=== PATIENT | female | born 1960 | race Caucasian/White ===

== ENCOUNTER → 2018-03-16 | Outpatient (CLI) | payer OTHER | LOC: FIMAGING 02-23 15:41 | PROVIDERS: ATTEND Obstetrics & Gynecology | DX: Z12.31 Encounter for screening mammogram for malignant neoplasm of breast (principal) ==

== ENCOUNTER 2018-10-24 17:04 | Observation (INO) | payer OTHER ==
[2018-10-24] MEDS ORDERED: ASPIRIN 81 MG CHEWABLE TAB PO ONE (17:26)
--- NOTE | 2018-10-24 17:36 | EDPHY ---
H & P Stated Complaint: Sent from [facility] for EKG changes and SOB Time Seen by Provider: 10/24/18 17:14 HPI/ROS: CHIEF COMPLAINT: Shortness breath and EKG changes HISTORY OF PRESENT ILLNESS: This is a very pleasant 58-year-old female with a history of essential hypertension as well as asymmetrical septal hypertrophy who was 1st seen at [facility] in August of 2018. On October 02, the patient suffered an acute left CVA in the posterior frontal lobe. At that time, she you developed an abrupt onset of slurred speech left-sided facial numbness and left-sided weakness along with difficulty swallowing. Patient was discharged from [facility] following her CVA on 10/03 2018 with instructions to take aspirin 81 mg daily as well as Plavix 75 mg daily. Patient did have a EKG at that time which demonstrated T-wave inversions isolated V5 and V6. She had a echocardiogram with left ventricular ejection fraction of 55-60%. Patient was then seen at [facility] on 10/11 and noted to be in atrial flutter with a rate of 111. Patient's medications were changed to metoprolol 25 mg p.o. Twice daily and Eliquis 5 mg p.o. Twice daily. She was also started on atorvastatin 20 mg daily. Patient presented today to [facility] for follow-up visit. She reports that she did well initially on the new medication regiment but about a week ago started to develop some progressive shortness of breath. She does report that when she was on Bystolic several years ago she also developed some shortness of breath. Patient had severe shortness of breath over the weekend (3-4 days ago) and she herself began taking metoprolol only once a day. Of concern, today while at Dr. Benjamin's office, the patient is now noted to have an EKG demonstrating ST depression and T-wave inversions inferiorly as well as slight ST elevation V1 V2 and T-wave inversions V5 V6. Patient denies any fevers or chills. She really has no chest pain or shortness of breath. She denies feeling palpitations, or rapid heart rate. REVIEW OF SYSTEMS: A comprehensive 10 system review of systems was reviewed and is otherwise negative aside from elements mentioned in the history of present illness and medical decision making. PAST MEDICAL HISTORY: Hypertension, CVA, atrial flutter SOCIAL HISTORY: Former smoker VITAL SIGNS Reviewed by me. GENERAL: Well-developed, well-nourished, resting comfortably in no respiratory distress. HEENT: Atraumatic. Eyes: No icterus, no injection. Mouth: moist mucous membranes. No erythema or lesions. Neck: supple with no adenopathy. LUNGS: Clear to auscultation bilaterally, no wheezes, rhonchi or rales. CARDIAC: Regular rate and rhythm, no rubs, murmurs or gallops. ABDOMEN: Soft, nontender, nondistended, bowel sounds normal. BACK: No CVA tenderness. EXTREMITIES: No trauma. No edema. Range of motion is normal throughout. NEURO: Alert and oriented, grossly nonfocal. SKIN: Warm and dry, no rash. PSYCHIATRIC: Normal mentation, no agitation. - Personal History Current Tetanus Diphtheria and Acellular Pertussis (TDAP): Yes - Medical/Surgical History Hx Asthma: No Hx Chronic Respiratory Disease: No Hx Diabetes: No Hx Cardiac Disease: Yes Hx Renal Disease: No Hx Cirrhosis: No Hx Alcoholism: No Hx HIV/AIDS: No Hx Splenectomy or Spleen Trauma: No Other PMH: A-Fib. CVA -October 02 2018. - Social History Smoking Status: Never smoked Constitutional: Initial Vital Signs Temperature (C) 36.9 C 10/24/18 17:08 Heart Rate 65 10/24/18 17:08 Respiratory Rate 16 10/24/18 17:08 Blood Pressure 174/108 H 10/24/18 17:08 O2 Sat (%) 96 10/24/18 17:08 O2 Delivery Mode Room Air Allergies/Adverse Reactions: Penicillins Allergy (Intermediate, Verified 10/24/18 19:24) Rash Home Medications: Medication Instructions Recorded Apixaban [Eliquis] 5 mg PO BID 10/24/18 Levothyroxine [Synthroid 75 mcg 75 mcg PO DAILY06 10/24/18 (*)] Liothyronine Sodium [Cytomel 5 mcg 5 mcg PO DAILY 10/24/18 (*)] Metoprolol Tartrate [Lopressor 25 25 mg PO DAILY 10/24/18 mg (*)] Medical Decision Making - Diagnostics EKG Interpretation: 12-LEAD EKG: Please see the full report in [facility]. My interpretation: Sinus rhythm, T-wave inversion and flattening inferior leads slight ST elevation in V1 V2. T-wave inversion V5 V6 Imaging Results: Imaging Impressions Chest X-Ray 10/24/18 17:28 Impression: Cardiomegaly with mild peribronchial thickening suggesting fluid overload, without patricio failure. Imaging: I viewed and interpreted images myself ED Course/Re-evaluation: 58-year-old female with a history of hypertension, asymmetric septal hypertrophy , CVA, episode of atrial flutter now presenting with progressive shortness of breath, worse over the weekend, and EKG changes of T-wave inversions inferiorly and slight ST-elevation anterior. Bedside troponin was 0.00. Laboratory evaluation largely unremarkable. Chest x -ray demonstrates cardiomegaly and probable mild fluid overload. Patient will be admitted to the hospital given the concerning EKG changes in the setting of a history of atrial flutter, hypertrophic outlet obstruction. Course was discussed with Dr. Audi Albarran. Patient was admitted PCU. She is resting comfortably. Differential Diagnosis: Differential diagnosis for the patient's shortness of breath was considered including but not limited to congestive heart failure, fluid overload, pulmonary embolism, congestive heart failure, arrhythmia, cardiac causes, valvular dysfunction. - Data Points Laboratory Results: Laboratory Results 10/24/18 17:30 10/24/18 17:30 10/24/18 10/24/18 10/24/18 17:33 17:30 17:30 WBC RBC Hgb Hct MCV MCH MCHC RDW Plt Count MPV Neut % (Auto) Lymph % (Auto) [place] % (Auto) Eos % (Auto) Baso % (Auto) Nucleat RBC Rel Count Absolute Neuts (auto) Absolute Lymphs (auto) Absolute Monos (auto) Absolute Eos (auto) Absolute Basos (auto) Absolute Nucleated RBC Immature Gran % Immature Gran # Sodium 138 mEq/L mEq/L (135-145) Potassium 4.0 mEq/L mEq/L (3.5-5.2) Chloride 103 mEq/L mEq/L (97-110) Carbon Dioxide 26 mEq/l mEq/l (22-31) Anion Gap 9 mEq/L mEq/L (6-14) BUN 18 mg/dL mg/dL (7-23) Creatinine 1.0 mg/dL mg/dL (0.6-1.0) Estimated GFR 57 Glucose 90 mg/dL mg/dL (70-100) Calcium 9.8 mg/dL mg/dL (8.5-10.4) POC Troponin I 0.02 ng/mL ng/mL (0.00-0.08) Troponin I 0.013 ng/mL ng/mL (0.000-0.034) NT-Pro-B Natriuret Pep 1000 pg/mL H pg/mL (0-125) 10/24/18 17:30 WBC 6.60 10^3/uL 10^3/uL (3.80-9.50) RBC 5.05 10^6/uL 10^6/uL (4.18-5.33) Hgb 15.7 g/dL g/dL (12.6-16.3) Hct 47.1 % H % (38.0-47.0) MCV 93.3 fL fL (81.5-99.8) MCH 31.1 pg pg (27.9-34.1) MCHC 33.3 g/dL g/dL (32.4-36.7) RDW 13.2 % % (11.5-15.2) Plt Count 259 10^3/uL 10^3/uL (150-400) MPV 11.5 fL fL (8.7-11.7) Neut % (Auto) 42.7 % % (39.3-74.2) Lymph % (Auto) 42.6 % % (15.0-45.0) [place] % (Auto) 9.1 % % (4.5-13.0) Eos % (Auto) 4.5 % % (0.6-7.6) Baso % (Auto) 0.9 % % (0.3-1.7) Nucleat RBC Rel Count 0.0 % % (0.0-0.2) Absolute Neuts (auto) 2.82 10^3/uL 10^3/uL (1.70-6.50) Absolute Lymphs (auto) 2.81 10^3/uL 10^3/uL (1.00-3.00) Absolute Monos (auto) 0.60 10^3/uL 10^3/uL (0.30-0.80) Absolute Eos (auto) 0.30 10^3/uL 10^3/uL (0.03-0.40) Absolute Basos (auto) 0.06 10^3/uL 10^3/uL (0.02-0.10) Absolute Nucleated RBC 0.00 10^3/uL 10^3/uL (0-0.01) Immature Gran % 0.2 % % (0.0-1.1) Immature Gran # 0.01 10^3/uL 10^3/uL (0.00-0.10) Sodium Potassium Chloride Carbon Dioxide Anion Gap BUN Creatinine Estimated GFR Glucose Calcium POC Troponin I Troponin I NT-Pro-B Natriuret Pep Medications Given: Apixaban (Eliquis) 5 mg PO BID MARLON Stop: 04/22/19 20:59 Last Admin: 10/24/18 21:56 Dose: 5 mg Discontinued Medications Aspirin (Aspirin) 324 mg PO EDNOW ONE Stop: 10/24/18 17:27 Last Admin: 10/24/18 17:39 Dose: 324 mg Point of Care Test Results: Chemistry 10/24/18 17:33 POC Troponin I 0.02 ng/mL ng/mL (0.00-0.08) Departure - Departure Disposition: [facility] Inpatient Acute Clinical Impression: Acute electrocardiogram changes Dyspnea Qualifiers: Dyspnea type: shortness of breath Qualified Code(s): R06.02 - Shortness of breath; R06.00 - Dyspnea, unspecified; R06.01 - Orthopnea Condition: Fair
[2018-10-24 17:44] LABS: PLATELET COUNT 259 10^3/uL (150-400)
[2018-10-24] MEDS ORDERED: oxyCODONE IR 5 MG TAB PO PRN (20:27)
[2018-10-24] MEDS ORDERED: HYDROCODONE/APAP 5/325 TAB PO PRN (20:27)
[2018-10-24] MEDS ORDERED: PROMETHAZINE HCL 25 MG/ML INJ IVP PRN (20:27)
[2018-10-24] MEDS ORDERED: ONDANSETRON DISINTEGRATING 4 MG TAB PO PRN (20:27)
[2018-10-24] MEDS ORDERED: ACETAMINOPHEN 325 MG TAB PO PRN (20:27)
[2018-10-24] MEDS ORDERED: HYDROmorphONE/DILAUDID 1 MG/ML INJ IVP PRN (20:27)
[2018-10-24] MEDS ORDERED: ONDANSETRON 4 MG/2 ML VIAL IVP PRN (20:27)
--- NOTE | 2018-10-24 21:05 | CPEKG ---
Test Reason : OPEN Blood Pressure : / mmHG Vent. Rate : 063 BPM Atrial Rate : 064 BPM P-R Int : 161 ms QRS Dur : 096 ms QT Int : 410 ms P-R-T Axes : 072 004 213 degrees QTc Int : 420 ms Sinus rhythm Biatrial enlargement LVH with secondary repolarization abnormality T wave flattening and inversion inferior leads, changed from prior ekg earlier today Confirmed by Mary Cain ([id number]) on 10/24/2018 9:04:35 PM Referred By: Mary Cain Confirmed By:Mary Cain
[2018-10-24] MEDS: APIXABAN 5 MG TAB PO SCH (21:56)
--- NOTE | 2018-10-24 23:23 | PDGENHP ---
History and Physical - Chief Complaint exertional sob/orthopnea - History of Present Illness Patient is a 58 yo F who has a PMH of recent ischemic CVA diagnosed earlier this month at [facility] as well as recently discovered a flutter and asymmetrical septal hypertrophy followed at [facility] who was sent here from [facility] where she presented complaining of new onset exertional SOB as well as orthopnea to the point where she has had to sleep sitting up. She notes this symptoms began over the weekend and were associated with headache, but have now resolved. Sxs were most severe on Monday, and she was concerned it was related to the metoprolol or eliquis so she took half her prescribed dose. She notes the TERRY too was severe that day. Her SOB and orthopnea have essentially resolved since then, but she continues to have a mild TERRY. Her stroke has left her with some residual speech issues, but these have been improving. She was also found at that time to have an incidental R MCA aneurysm. On arrival in the ER, ECG was noted to be abnormal with ST depression in 2,3,avf and slight eelvation in v1,v2 that was reviewed by cardiology and thought to be related to her hypertrophic CM. History Information - Allergies/Home Medication List Allergies/Adverse Reactions: Penicillins Allergy (Intermediate, Verified 10/24/18 19:24) Rash Home Medications: Apixaban [Eliquis] 5 mg PO BID 10/24/18 [Last Taken 10/24/18] Levothyroxine [Synthroid 75 mcg (*)] 75 mcg PO DAILY06 10/24/18 [Last Taken ] Liothyronine Sodium [Cytomel 5 mcg (*)] 5 mcg PO DAILY 10/24/18 [Last Taken ] Metoprolol Tartrate [Lopressor 25 mg (*)] 25 mg PO DAILY 10/24/18 [Last Taken ] I have personally reviewed and updated: family history, medical history, social history, surgical history - Past Medical History CVA, hypertension Additional medical history: hypothyroid. celiac disease. R MCA aneurysm. assymetric septal hypertrophy/HCM - Surgical History Additional surgical history: TMJ surgery - Family History Positive for: non-pertinent - Social History Smoking Status: Never smoked Alcohol Use: Rarely Drug Use: None Additional social history: , lives independently Review of Systems Review of Systems: ROS: 10pt was reviewed & negative except for what was stated in HPI & below Physical Exam Physical Exam: Temp Pulse Resp BP Pulse Ox 36.6 C 59 L 16 142/94 H 96 10/24/18 23:12 10/24/18 23:12 10/24/18 23:12 10/24/18 23:12 10/24/18 23:12 Constitutional: no apparent distress, appears nourished Eyes: PERRL, anicteric sclera Ears, Nose, Mouth, Throat: moist mucous membranes, hearing normal Cardiovascular: regular rate and rhythym, no murmur, rub, or gallop, edema Respiratory: no respiratory distress, no rales or rhonchi Gastrointestinal: normoactive bowel sounds, soft, non-tender abdomen Genitourinary: no bladder tenderness Skin: warm, normal color Musculoskeletal: full muscle strength Neurologic: AAOx3, CN II-XII Intact Psychiatric: interacting appropriately, not anxious, not encephalopathic Lab Data & Imaging Review 10/24/18 17:30 10/24/18 17:30 WBC 6.60 10^3/uL (3.80-9.50) 10/24/18 17:30 RBC 5.05 10^6/uL (4.18-5.33) 10/24/18 17:30 Hgb 15.7 g/dL (12.6-16.3) 10/24/18 17:30 Hct 47.1 % (38.0-47.0) H 10/24/18 17:30 MCV 93.3 fL (81.5-99.8) 10/24/18 17:30 MCH 31.1 pg (27.9-34.1) 10/24/18 17:30 MCHC 33.3 g/dL (32.4-36.7) 10/24/18 17:30 RDW 13.2 % (11.5-15.2) 10/24/18 17:30 Plt Count 259 10^3/uL (150-400) 10/24/18 17:30 MPV 11.5 fL (8.7-11.7) 10/24/18 17:30 Neut % (Auto) 42.7 % (39.3-74.2) 10/24/18 17:30 Lymph % (Auto) 42.6 % (15.0-45.0) 10/24/18 17:30 [place] % (Auto) 9.1 % (4.5-13.0) 10/24/18 17:30 Eos % (Auto) 4.5 % (0.6-7.6) 10/24/18 17:30 Baso % (Auto) 0.9 % (0.3-1.7) 10/24/18: Nucleat RBC Rel Count 0.0 % (0.0-0.2) 10/24/18 17:30 Absolute Neuts (auto) 2.82 10^3/uL (1.70-6.50) 10/24/18 17: Absolute Lymphs (auto) 2.81 10^3/uL (1.00-3.00) 10/24/18 17:30 Absolute Monos (auto) 0.60 10^3/uL (0.30-0.80) 10/24/18: Absolute Eos (auto) 0.30 10^3/uL (0.03-0.40) 10/24/18 17:30 Absolute Basos (auto) 0.06 10^3/uL (0.02-0.10) 10/24/18: Absolute Nucleated RBC 0.00 10^3/uL (0-0.01) 10/24/18: Immature Gran % 0.2 % (0.0-1.1) 10/24/18: Immature Gran # 0.01 10^3/uL (0.00-0.10) 10/24/18 17:30 Sodium 138 mEq/L (135-145) 10/24/18 17:30 Potassium 4.0 mEq/L (3.5-5.2) 10/24/18:30 Chloride 103 mEq/L (97-110) 10/24/18:30 Carbon Dioxide 26 mEq/l (22-31) 10/24/18:30 Anion Gap 9 mEq/L (6-14) 10/24/18 17:30 BUN 18 mg/dL (7-23) 10/24/18 17:30 Creatinine 1.0 mg/dL (0.6-1.0) 10/24/18 17:30 Estimated GFR 57 10/24/18 17:30 Glucose 90 mg/dL (70-100) 10/24/18 17:30 Calcium 9.8 mg/dL (8.5-10.4) 10/24/18 17:30 POC Troponin I 0.02 ng/mL (0.00-0.08) 10/24/18 17:33 Troponin I 0.013 ng/mL (0.000-0.034) 10/24/18 17:30 NT-Pro-B Natriuret Pep 1000 pg/mL (0-125) H 10/24/18 17:30 Visualized and Interpreted Chest x-ray results: Yes Chest X-Ray results: other (CM without patricio failure) Visualized and Interpreted EKG results: Yes EKG Interpretation: Positive for: ST elevation, ST depression Assessment & Plan Assessment: Acute electrocardiogram changes (Acute) Dyspnea (Acute) 58 yo F with PMH of HCM, recent ischemic cva and new diagnosis of a flutter presenting with c/o sob on exertion and orthopnea # sob/orthopnea: patient notes these sxs were present over the weekend but have now largely resolved, cxr is noted to have some mild peribronchial thickening suggestive of fluid overload per radiologist and lower extremity edema also present so query decompensated CHF. Recent echo with normal EF but severe LVH and diastolic dysfunction. Will start lasix and request cardiology eval in am. Monitor on tele w/serial trops overnight. # a flutter: new dx, started on metoprolol and eliquis which she has been intermittently non compliant with as she was concerned the meds might be causing her sxs as above, currently in SR # abnormal ecg: concerning for acute ischemia however on review with cardiology they feel this is more likely related to her HCM, serial ecg largely stable and patient without cp, initial troponin negative # CVA: diagnosed recently at [facility], on asa, plavix initially but now eliquis with new dx of a flutter, does have f/u with neurology scheduled, mild speech expressive aphasia still present # right MCA aneursym: noted incidentally, has f/u with nsg # HCM: as above # HTN: BP above goal since arrival and patient only on metoprolol currently for BP, may need addition of other agent for sbp <140 # observation status # Patient new to my care. Old records reviewed and summarized as above. Care plan reviewed with ER doctor as above.
[2018-10-24] MEDS ORDERED: FUROSEMIDE 20 MG/2 ML VIAL IVP ONE (23:35)
[2018-10-24] MEDS ORDERED: hydrALAZINE 20 MG/ML VIAL IVP PRN (23:36)
[2018-10-25] MEDS ORDERED: METOPROLOL TARTRATE 5 MG/5 ML INJ IVP ONE ×2 (02:53→04:45)
[2018-10-25] MEDS: METOPROLOL TARTRATE 25 MG TAB PO SCH (06:15)
[2018-10-25] MEDS: LEVOTHYROXINE 75 MCG TAB PO SCH (06:15)
[2018-10-25] MEDS: FUROSEMIDE 20 MG/2 ML VIAL IVP SCH ×2 (08:01→15:23)
[2018-10-25] MEDS: LIOTHYRONINE SODIUM 5 MCG TAB PO SCH (08:02)
[2018-10-25] MEDS: APIXABAN 5 MG TAB PO SCH ×2 (08:02→21:32)
--- NOTE | 2018-10-25 09:16 | ASMTCMCOM ---
CM Note CM Note Notes: Chart reviewed for discharge planning purposes, 58 year old female admitted via ED with c/o increasing shortness of breath. Recent CVA has left her with some deficits. Per chart lives in [place] with her . No therapies intiated as of yet. CM to follow for needs. Plan: TBD Date Signed: 10/25/2018 09:15 AM Electronically Signed By:Rachelle Hernandez RN
--- NOTE | 2018-10-25 10:08 | GCON ---
[f rep st] CONSULTATION CARDIAC CONSULTATION DATE OF CONSULTATION: 10/25/2018 CHIEF COMPLAINT: Shortness of breath, atrial fibrillation, CVA, hypertrophic cardiomyopathy. HPI: This is a 58-year-old female usually followed by Dr. Benjamin in our office. He saw her yesterday, and she was complaining of shortness of breath. She has significant history of essential hypertensi on, asymmetrical hypertrophy, and history of an acute left CVA on 10/02/2018. This was at [facility]. She was placed on Eliquis at that time and metoprolol. In the past, she had been on beta blockers with fatigue. Yesterday, she was seen by Dr. Benjamin complaining of intermittent shortne ss of breath. She, at times, was noncompliant with her beta leslie. She eventually presented to [facility] emergency room, where her enzymes were normal. Her EKG showed fairly chronic ST and T-wave changes . Overnight, she had negative cardiac enzyme biomarkers for myocardial infarction. Her BNP was appr oximately 1000. She did have an episode of atrial fibrillation last night. I am wondering if some o f her shortness of breath may have been paroxysmal atrial fibrillation. She was not significantly sy mptomatic with it. Today, she is in normal sinus rhythm, feeling well. In speaking to her, she did not like beta leslie therapy in the past. She is tolerating her Eliquis without bleeding issues. I discussed her options. At this point, we will plan on the followin. Begin amiodarone 200 mg p.o. b.i.d. for atrial fibrillation control. 2. A coronary CT angiogram will be performed to assess her coronary anatomy. She does have a marked ly abnormal EKG, possibly secondary to the hypertrophic cardiomyopathy. Would like to make sure that we get a definitive picture of her coronary anatomy if, for nothing else, so that she can have a com parison if further EKG changes are noted in the future. She is comfortable with this. ALLERGIES: Penicillin. OUTPATIENT MEDICATIONS: See reconciliation form. FAMILY HISTORY: Noncontributory. REVIEW OF SYSTEMS: Negative 10-point review of systems other than that in the HPI. PAST SURGICAL HISTORY: Just TMJ surgery. FAMILY HISTORY: No history of early coronary vascular disease or hypertrophic cardiomyopathy that denys knows of. EXAM: VITAL SIGNS: Blood pressure is 109/91, pulse is in the 60s and sinus. GENERAL: She is a mid dle-aged female, sitting in chair, alert, oriented, in no acute distress. No obvious signs of recent CVA, although she says she does have some difficulty with speech. MOUTH: Oropharynx is moist. ALFONSO K: CVA and chest wall without palpable tenderness. LUNGS: Clear to auscultation. CARDIOVASCULAR: Regular rate and rhythm with a systolic murmur. No JVP or HJR. ABDOMEN: Soft, nontender. MUSCULO SKELETAL: Showed no cyanosis, clubbing, or edema. LABS: White count 6, hemoglobin 15. Potassium 4.0, creatinine 1.0. Troponins negative. BNP 1000. ASSESSMENT: 1. Shortness of breath. I am wondering if she is having intermittent breakthrough atrial fibrillati on, which could account for this finding. She did have atrial fibrillation last night with not a lot of symptoms, and she was lying in bed and was woken to this fact. Today, she is in normal sinus rhy thm. She does not like beta blockers, has had some perceived fatigue side effects. I discussed amio darone therapy. She has agreed to this at least in the short term. I will start her on amiodarone 2 00 mg by mouth twice daily and continue her on her Eliquis. When discharged, I would recommend a 30- day monitor to continue following her paroxysmal atrial fibrillation. She understands that she will need to be on blood thinners probably for the rest of her life. Further therapy for atrial fibrillat ion can be further discussed as an outpatient with Dr. Benjamin regarding medicines and/or ablation techn iques. 2. Abnormal EKG. Possibly secondary to her hypertrophic cardiomyopathy. No acute coronary syndrome symptomatology to speak of. She does have some shortness of breath. We will progress with a CT cor onary angiogram for further evaluation so that we get a good baseline. 3. History of cerebrovascular accident. Patient appears to be progressing well. She is going back to work. Follow up with Neurologist and PCP. /[id number]/MODL
[2018-10-25] MEDS: AMIODARONE HCL 200 MG TAB PO SCH ×2 (11:06→21:32)
[2018-10-25] MEDS ORDERED: IOPAMIDOL (ISOVUE-370) 150 ML BTL IV ONE (11:13)
[2018-10-25] MEDS ORDERED: NITROGLYCERIN 0.4 MG BTL SL ONE (11:35)
--- NOTE | 2018-10-25 17:12 | HOSPPROG ---
Hospitalist Progress Note Assessment/Plan: 58 yo F with PMH of HCM, recent ischemic cva and new diagnosis of a flutter presenting with c/o sob on exertion and orthopnea # a flutter: new dx, started on metoprolol and eliquis which she has been intermittently non compliant with as she was concerned the meds might be causing her sxs as above, currently in SR - Cardiology consulted this AM, recommend starting Amiodarone 200 mg BID and continue home Eliquis, Metoprolol # sob/orthopnea: patient notes these sxs were present over the weekend but have now largely resolved, cxr is noted to have some mild peribronchial thickening suggestive of fluid overload per radiologist and lower extremity edema also present so query decompensated CHF. - Recent echo with normal EF but severe LVH and diastolic dysfunction. - Cardiology consulted this AM who believe these episodes may be related to paroxysmal A Fib - S/p dose of Lasix, will hold off on further dosing for now # abnormal ecg: concerning for acute ischemia however on review with cardiology they feel this is more likely related to her HCM, serial ecg largely stable and patient without cp, troponins negative x3 - Coronary CT performed this afternoon which did not show any significant CAD # CVA: diagnosed recently at [facility], on asa, plavix initially but now eliquis with new dx of a flutter, does have f/u with neurology scheduled, mild speech expressive aphasia still present # right MCA aneursym: noted incidentally, has f/u with nsg # HCM: as above # HTN: BP above goal since arrival and patient only on metoprolol currently for BP, may need addition of other agent for sbp <140 Subjective: Pt reports improvement in SOB this afternoon Objective: Vital Signs Temp Pulse Resp BP Pulse Ox 36.7 C 64 11 L 113/73 95 10/25/18 16:00 10/25/18 16:00 10/25/18 16:00 10/25/18 16:00 10/25/18 16:00 10/24/18 10/25/18 10/26/18 05:59 05:59 05:59 Intake Total 100 1600 Output Total 850 700 Balance -750 900 - Physical Exam Constitutional: no apparent distress Eyes: PERRL Ears, Nose, Mouth, Throat: moist mucous membranes Cardiovascular: regular rate and rhythym, No edema Respiratory: no respiratory distress Gastrointestinal: soft, non-tender abdomen Skin: warm Musculoskeletal: full muscle strength Neurologic: AAOx3 Psychiatric: interacting appropriately ICD10 Worksheet Patient Problems: Problems Problem Status Onset Acute electrocardiogram changes Acute Dyspnea Acute
[2018-10-26] MEDS: LEVOTHYROXINE 75 MCG TAB PO SCH (05:59)
[2018-10-26] MEDS: LIOTHYRONINE SODIUM 5 MCG TAB PO SCH (05:59)
[2018-10-26 07:36] VITALS: BP 133/87
[2018-10-26] MEDS: AMIODARONE HCL 200 MG TAB PO SCH (08:48)
[2018-10-26] MEDS: APIXABAN 5 MG TAB PO SCH (08:49)
--- NOTE | 2018-10-26 09:42 | SOAPPROG ---
DMITRY Progress Note Assessment/Plan: Assessment: 1. Paroxysmal atrial fibrillation seems to be controlled with amiodarone. Will discharge in 20 mg q.day. Patient on Eliquis. She will follow-up with Dr. Benjamin for further care as an outpatient. She also have a 30 day monitor arranged to see if she is having any breakthrough arrhythmias. Plan: 1. Okay to from cardiac standpoint discussed with Dr. Pittman 10/26/18 09:41 Subjective: Patient doing well from cardiac standpoint. Remains in normal sinus rhythm. Would discharge on amiodarone 200 mg q.day follow-up with Dr. Benjamin 1 month. 30 day monitor will be arranged. Patient should have her EKG and CT angiogram results given to her for her personal records.. She is cleared for full activity from a cardiac standpoint. Objective: Vital Signs Temp Pulse Resp BP Pulse Ox 36.8 C 64 18 133/87 H 96 10/26/18 07:35 10/26/18 07:35 10/26/18 07:35 10/26/18 07:35 10/26/18 07:35 10/25/18 10/26/18 10/27/18 05:59 05:59 05:59 Intake Total 100 1950 Output Total 850 900 Balance -750 1050 ICD10 Worksheet Patient Problems: Problems Problem Status Onset Acute electrocardiogram changes Acute Dyspnea Acute
[2018-10-26] MEDS: METOPROLOL TARTRATE 25 MG TAB PO SCH (10:08)
--- NOTE | 2018-10-26 11:21 | ASMTLACE ---
LACE Length of stay for Answers: 1 day current admission Comorbidities - select Answers: Cerebrovascular disease all that apply (CVA, TIA, aneurysms, vasc ular dementia) Other Notes: HTN; AFib # of Emergency department Answers: 1-2 visits in the last 6 months Score: 4 Date Signed: 10/26/2018 11:20 AM Electronically Signed By:Rachelle Hernandez RN
--- NOTE | 2018-10-26 13:50 | PDDCSUM ---
Discharge Summary Discharge Summary: Date of Admission: 10/24/2018 Date of Discharge: 10/26/2018 Consults: Cardiology Procedures: CTA Coronaries Followup: Cardiology Hospital Course Problem List: 58 yo F with PMH of HCM, recent ischemic cva and new diagnosis of a flutter presenting with c/o sob on exertion and orthopnea # a flutter: new dx, started on metoprolol and eliquis which she has been intermittently non compliant with as she was concerned the meds might be causing her sxs as above, currently in SR - Cardiology consulted, recommend Amiodarone 200 mg QD and continue home Eliquis , discontinue Metoprolol. Patient to followup with Dr. Benjamin in 1 month with 30 day monitor to be arranged. # sob/orthopnea: patient notes these sxs were present over the weekend but have now largely resolved, cxr is noted to have some mild peribronchial thickening suggestive of fluid overload per radiologist and lower extremity edema also present so query decompensated CHF. - Recent echo with normal EF but severe LVH and diastolic dysfunction. - Cardiology consulted who believe these episodes may be related to paroxysmal A Fib - S/p dose of Lasix, will hold off on further dosing for now # abnormal ecg: concerning for acute ischemia however on review with cardiology they feel this is more likely related to her HCM, serial ecg largely stable and patient without cp, troponins negative x3 - Coronary CT performed on 10/25 which did not show any significant CAD # CVA: diagnosed recently at [facility], on asa, plavix initially but now eliquis with new dx of a flutter, does have f/u with neurology scheduled, mild speech expressive aphasia still present # right MCA aneursym: noted incidentally, has f/u with nsg # HCM: as above # HTN: BP above goal since arrival and patient only on metoprolol currently for BP, may need addition of other agent for sbp <140
[2018-10-27] MEDS ORDERED: AMIODARONE HCL 200 MG TAB PO SCH (09:00)
--- NOTE | 2018-11-01 17:02 | CPEKG ---
Test Reason : OPEN Blood Pressure : / mmHG Vent. Rate : 159 BPM Atrial Rate : 326 BPM P-R Int : 116 ms QRS Dur : 083 ms QT Int : 300 ms P-R-T Axes : 080 011 243 degrees QTc Int : 489 ms Atrial flutter/fibrillation Probable LVH with secondary repol abnrm ST depression, probably rate related Borderline prolonged QT interval Confirmed by Juan Levy ([id number]) on 11/01/2018 5:02:13 PM Referred By: Audi Albarran Confirmed By:Juan Levy
--- NOTE | 2018-11-01 17:06 | CPEKG ---
Test Reason : OPEN Blood Pressure : / mmHG Vent. Rate : 064 BPM Atrial Rate : 063 BPM P-R Int : 159 ms QRS Dur : 088 ms QT Int : 428 ms P-R-T Axes : 074 -03 236 degrees QTc Int : 442 ms Sinus rhythm Biatrial enlargement LVH with secondary repolarization abnormality Confirmed by Juan Levy ([id number]) on 11/01/2018 5:05:25 PM Referred By: Audi Albarran Confirmed By:Juan Levy
== END 2018-10-26 11:30 | disposition home or self-care (01) ==
LOC: F2W 21:20
PROVIDERS: ADMIT Internal Medicine; ATTEND Internal Medicine
DX: I48.0 Paroxysmal atrial fibrillation (principal); I48.92 Unspecified atrial flutter; I67.1 Cerebral aneurysm, nonruptured; R06.02 Shortness of breath; I10 Essential (primary) hypertension; I69.328 Other speech and language deficits following cerebral infarction; Z79.82 Long term (current) use of aspirin
CPT/HCPCS: 71046; 75574; 93005; 96374; 96375; 96376; 99285; G0378; 84484-ER; J1940; Q9967